=== PATIENT | female | born 1985 | race Caucasian/White ===

== ENCOUNTER 2017-12-09 18:56 | Emergency (ER) | payer OTHER, MEDICAID ==
[~2017-12-09] VITALS: Ht 167.6 cm; Wt 127.0 kg
[~2017-12-09 18:56] MED LIST: CLEOCIN HCL150 MG PO; COMPAZINE10 MG PO; FLEXERIL PO; IBUPROFEN 800800 M1 PO; NAPROSYN500 MG PO; NOHOMEMEDICATIONS; PREDNISONE 20 M20 M1 PO; PROTONIX40 MG PO; TRAMADOL 50 MG50 MG PO; ZPAK PO
[2017-12-09] MEDS ORDERED: CARAFATE 1 GM TA1 GM PO (20:07)
[2017-12-09 20:19] VITALS: BP 125/47
--- NOTE | 2017-12-10 11:23 | EKG ---
[place] [address] ELECTROCARDIOGRAM REPORT Name: SUJATA HIGGINBOTHAMTHIPrasad Meza Room: [facility]#: [id number] Admission: 12/09/17 Attend Phys: Discharge: 12/09/17 Date of : 89 Report #: [id number] THIS REPORT FOR: //name// [facility] ED Test Date: 2017-12-09 Test Time: 19:06:01 Pat Name: ORI HIGGINBOTHAM Department: Room: Gender: F [employer] Fe[employer]: JOSELITO : 1985 Requested By: Kayley Lopez Order Number: [id number] MD: Fernando Guadalupe Measurements Intervals [place] Rate: 97 P: 47 OK: 143 QRS: 47 QRSD: 99 T: -1 QT: 383 QTc: 487 Interpretive Statements Sinus rhythm Borderline repolarization abnormality Borderline prolonged QT interval Compared to ECG 11/06/2010 23:35:00 no change Electronically Signed On 12-10-2017 11:23:27 CDT by Fernando Guadalupe [email or web address] <ELECTRONICALLY SIGNED> By: Fernando Guadalupe MD, [facility] 12/10/17 1123 190 190 Fernando Guadalupe MD, FAC /EPI
== END 2017-12-09 20:22 | disposition home or self-care (01) ==
LOC: M.ERS 18:56
DX: K29.70 Gastritis, unspecified, without bleeding (principal); Z90.49 Acquired absence of other specified parts of digestive tract; Z88.5 Allergy status to narcotic agent; Z88.6 Allergy status to analgesic agent

== ENCOUNTER 2021-03-09 17:45 | Emergency (ER) | payer OTHER ==
[~2021-03-09] VITALS: Ht 170.2 cm; Wt 127.0 kg
[~2021-03-09 17:45] MED LIST changes: +CARAFATE 1 GM TA1 GM PO
[2021-03-09] MEDS ORDERED: PREDNISONE 20 M20 MG PO (19:26)
[2021-03-09 19:48] VITALS: BP 140/90
== END 2021-03-09 19:49 | disposition home or self-care (01) ==
LOC: M.ERS 17:45
DX: L50.9 Urticaria, unspecified (principal); Z90.49 Acquired absence of other specified parts of digestive tract; Z89.022 Acquired absence of left finger(s); Z88.5 Allergy status to narcotic agent